=== PATIENT | male | born 1985 | race African-American/Black ===

== ENCOUNTER 2024-09-16 07:15 | Emergency (ER) | payer SELFPAY ==
[~2024-09-16] VITALS: Ht 175.3 cm; Wt 74.8 kg
[2024-09-16 07:28] VITALS: BP 136/78; TEMP 98.2; O2SAT 96
== END 2024-09-16 07:59 | disposition home or self-care (01) ==
LOC: ER 07:23
DX: K62.89 Other specified diseases of anus and rectum (principal); Z87.19 Personal history of other diseases of the digestive system